=== PATIENT | male | born 1995 | race Caucasian/White ===

== ENCOUNTER → 2018-03-19 | Outpatient (CLI) | payer BC, OTHER ==
--- NOTE | 2018-03-19 10:20 | RAD ---
LIMITED ABDOMINAL ULTRASOUND History: Right upper quadrant pain. Comparison: None. Procedure: Transabdominal ultrasound images are obtained. Findings: Visualized pancreas is unremarkable. Liver is normal in echogenicity. No focal hepatic masses are identified. Right hepatic lobe measures 13.4 cm in length. Gallbladder has an unremarkable appearance. Common bile duct measures normally at 3 mm in diameter. Right kidney measures 10.7 cm in length. There is no evidence of stone or hydronephrosis. Visualized IVC demonstrates normal caliber. Impression: 1. Unremarkable right upper quadrant ultrasound. Electronically signed by: Edil Olivarez MD (03/19/2018 10:16 AM) [facility]
== END | disposition home or self-care (01) ==
LOC: US 07:52
PROVIDERS: ATTEND Family Medicine
DX: R10.11 Right upper quadrant pain (principal)
CPT/HCPCS: 76705

== ENCOUNTER 2020-06-27 18:06 | Emergency (ER) | payer BC, OTHER ==
[~2020-06-27] VITALS: Ht 165.1 cm; Wt 54.5 kg
--- NOTE | 2020-06-27 18:24 | PHYS DOC ---
General Adult EDM: Chief Complaint: SEIZURE HPI: HPI: 25-year-old male presents via EMS with seizure. 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 They are having some kind of [place]. The last thing the patient remembers is that he was pain for something that he bought and then he woke up in the back of an ambulance. Bystanders reported the patient fell to the ground and had tonic-clonic movements which appeared to be seizure. They stated that this lasted for about 5 minutes. Patient was post ictal and forgetful for EMS. He is more aware on arrival. Patient states that he was feeling fine prior to this. No other medical complaints or signs of illness. He does admit to smoking marijuana earlier today. He was not drinking alcohol at the event. He denies any other drug use or ingestions. He only has history of syncope once many years ago as a child. No history of seizure. Denies fever or chills. Review of Systems: Review of Systems: Constitutional: Denies fever or chills Eyes: Denies change in visual acuity HENT: Denies nasal congestion or sore throat Respiratory: Denies cough or shortness of breath Cardiovascular: Denies chest pain or edema GI: Denies abdominal pain, nausea, vomiting, bloody stools or diarrhea : Denies dysuria Musculoskeletal: Denies back pain or joint pain Integument: Denies rash Neurologic: Seizure, headache. Denies focal weakness or sensory changes Endocrine: Denies polyuria or polydipsia Lymphatic: Denies swollen glands Psychiatric: Denies depression or anxiety Heart Score: Risk Factors: Risk Factors: DM, Current or recent (<one month) smoker, HTN, HLP, family history of CAD, obesity. Risk Scores: Score 0 - 3: 2.5% MACE over next 6 weeks - Discharge Home Score 4 - 6: 20.3% MACE over next 6 weeks - Admit for Clinical Observation Score 7 - 10: 72.7% MACE over next 6 weeks - Early Invasive Strategies Current Medications: Current Meds: Current Medications Medications (Trade) Dose Ordered Sig/Melissa Start Time Stop Time Status Last Admin Dose Admin Ondansetron HCl (Zofran) 4 mg 1X ONCE 06/27/20 18:30 06/27/20 18:31 Sodium Chloride 1,000 ml @ 1,000 mls/hr 1X ONCE 06/27/20 18:30 8/30/20 19:29 Allergies: Allergies: Allergies Coded Allergies Type Severity Reaction Last Updated Verified No Known Drug Allergies 06/27/20 No Physical Exam: PE: Constitutional: Well developed, well nourished, no acute distress, non-toxic appearance. [] HENT: Normocephalic, atraumatic, bilateral external ears normal, oropharynx moist, no oral exudates, nose normal. [] Eyes: PERRLA, EOMI, conjunctiva normal, no discharge. [] Neck: Normal range of motion, no tenderness, supple, no stridor. [] Cardiovascular: Heart rate 118, regular rhythm, no murmur [] Lungs & Thorax: Bilateral breath sounds clear to auscultation [] Abdomen: Bowel sounds normal, soft, no tenderness, no masses, no pulsatile masses. [] Skin: Warm, dry, no erythema, no rash. [] Back: No tenderness, no CVA tenderness. [] Extremities: No tenderness, no cyanosis, no clubbing, ROM intact, no edema. [] Neurologic: Alert and oriented X 3, normal motor function, normal sensory function, no focal deficits noted. [] Psychologic: Affect normal, judgement normal, mood normal. [] EKG: EKG: Sinus tachycardia, rate 109, normal axis, no ST elevations or depressions. [] Radiology/Procedures: Radiology/Procedures: [] Course & Med Decision Making: Course & Med Decision Making Pertinent Labs and Imaging studies reviewed. (See chart for details) The patient's labs are significant for an elevated white count. His initial lactic acid was extremely high at 16, we felt this was likely a lab error as the patient did not look this ill. Repeat lactic acid was 2.6. We have given him 2 L of normal saline. His head CT is negative for acute findings. I believe the patient can go home. This may have been induced by the weather outside and/or dehydration. If the patient has an additional episode he will come back to the emergency room for admission and further work-up. He is stable for discharge at this time. He will follow-up with his primary care physician. [] Dragon Disclaimer: Dragon Disclaimer: This electronic medical record was generated, in whole or in part, using a voice recognition dictation system. Departure Departure: Impression: Primary Impression: Seizure Disposition: HOME/RESIDENCE PRIOR TO ADM Condition: STABLE Referrals: TRAN FUCHS MD (PCP) Patient Instructions: Seizure, Adult, [id number] Justification of Admission: Justification of Admission: Justification of Admission Dx: N/A KENNETH RAMÍREZ DO Jun 27, 2020 18:24
[2020-06-27] MEDS ORDERED: ONDANSETRON PF 4 MG/2 ML VIAL. IVP ONE (18:30)
[2020-06-27] MEDS ORDERED: IV NORMAL SALINE 1,000ML 1,000 ML IV ONE ×2 (18:30→19:30)
[2020-06-27 18:36] LABS: BASO # 0.2 x10^3/uL (0.0-0.2); BASO % 1 % (0-3); EOS # 0.1 x10^3/uL (0.0-0.7); EOS % 0 % (0-3); HEMATOCRIT 50.3 % (39.0-53.0); LYMPH # 4.9 x10^3/uL (1.0-4.8); LYMPH % 31 % (24-48); MEAN CORPUSCULAR HEMOGLOBIN 35 pg (25-35); MEAN CORPUSCULAR HGB CONC 34 g/dL (31-37); MEAN CORPUSCULAR VOLUME 104 fL (79-100); MONO # 1.3 x10^3/uL (0.0-1.1); MONO % 8 % (0-9); NEUT # 9.5 x10^3uL (1.8-7.7); NEUT % 59 % (31-73); PLATELET COUNT 386 x10^3/uL (140-400); RED BLOOD COUNT 4.86 x10^6/uL (4.30-5.70); RED CELL DISTRIBUTION WIDTH 12.9 % (11.5-14.5)
[2020-06-27 18:56] LABS: CALCIUM 9.4 mg/dL (8.5-10.1); CREATININE 1.6 mg/dL (0.7-1.3); GFR 52.9; POTASSIUM 3.2 mmol/L (3.5-5.1)
[2020-06-27 19:12] LABS: ALBUMIN 4.9 g/dL (3.4-5.0); ALBUMIN/GLOBULIN RATIO 1.4 (1.0-1.7); TOTAL BILIRUBIN 0.4 mg/dL (0.2-1.0); TOTAL PROTEIN 8.4 g/dL (6.4-8.2)
[2020-06-27 19:13] LABS: AMPHETAMINE/METHAMPHETAMINE NEG (NEG); BARBITURATES NEG (NEG); BENZODIAZEPINES NEG (NEG); CANNABINOIDS POS (NEG); COCAINE NEG (NEG); METHADONE NEG (NEG); OPIATES NEG (NEG); PHENCYCLIDINE NEG (NEG)
--- NOTE | 2020-06-27 19:13 | RAD ---
Exam: CT head INDICATION: Seizure TECHNIQUE: Sequential axial images through the head were obtained without the administration of IV contrast. Comparisons: None FINDINGS: No focal parenchymal lesion or hemorrhage is identified. There is no midline shift or sulcal effacement. No acute vascular territory infarction is identified. Oates-white distinction is preserved. The ventricular system is within normal limits without compression hydrocephalus. The basal cisterns are well maintained. The visualized portions of the paranasal sinuses and mastoid air cells are well-pneumatized. No acute fractures. IMPRESSION: No acute intracranial abnormality. Exposure: One or more of the following in the visualized dose reduction techniques were utilized for this examination: 1. Automated exposure control 2. Adjustment of the MA and/or KV according to patient size Use of iterative of reconstructive technique Electronically signed by: Brent Sims MD (06/27/2020 7:10 PM) [id number]
--- NOTE | 2020-06-27 19:14 | RAD ---
Exam: Chest one view INDICATION: Seizure TECHNIQUE: Frontal view of the chest Comparisons: None FINDINGS: The cardiomediastinal silhouette and pulmonary vessels are within normal limits. The lung and pleural spaces are clear. IMPRESSION: No acute cardiopulmonary process. Electronically signed by: Brent Sims MD (06/27/2020 7:11 PM) [id number]
[2020-06-27 19:20] LABS: % ATYL 3 % (0-0); % LYMPHS 33 % (24-48); % MONOS 7 % (0-10); % SEGS 57 % (35-66)
[2020-06-27 19:34] LABS: PLT ESTIMATE INCREASED (ADEQUATE)
[2020-06-27 19:35] LABS: TOXIC GRANULATION SLIGHT
[2020-06-27 19:37] LABS: BILIRUBIN,URINE NEG (NEG); CLARITY,URINE CLEAR; COLOR,URINE YELLOW; GLUCOSE,URINE NEG (NEG)
[2020-06-27 19:38] LABS: BACTERIA,URINE 0 /HPF (0-FEW); HYALINE CASTS, URINE FEW /HPF; NITRITE,URINE NEG (NEG); SQUAMOUS EPITHELIAL CELL,UR OCC /LPF; UROBILINOGEN,URINE 0.2 mg/dL (0.2 mg/dL)
[2020-06-27] MEDS ORDERED: POTASSIUM CHLORIDE 20 MEQ TABLET.ER. PO ONE (19:45)
[2020-06-27 20:40] VITALS: BP 115/53
--- NOTE | 2020-06-28 00:14 | EKG ---
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
== END 2020-06-27 20:40 | disposition home or self-care (01) ==
LOC: ER 18:06
DX: G40.89 Other seizures (principal); R51 Headache
CPT/HCPCS: 36415; 70450; 71045; 80053; 80307; 81001; 82550; 83605; 84484; 85007; 85025; 93005; 96361; 96374; 99285; J2405; J7030